=== PATIENT | male | born 1970 | race Caucasian/White ===

== ENCOUNTER 2018-08-08 00:36 | Emergency (ER) | payer MEDICAID ==
[~2018-08-08] VITALS: Ht 188 cm; Wt 127.0 kg
[2018-08-08 00:43] VITALS: BP 138/87
== END 2018-08-08 01:41 | disposition left against medical advice (07) ==
LOC: ER 00:38
DX: H57.10 Ocular pain, unspecified eye (principal); Z53.21 Procedure and treatment not carried out due to patient leaving prior to being seen by health care provider